=== PATIENT | male | born 1995 | race American Indian/Alaskan Native ===

== ENCOUNTER 2020-02-29 23:06 | Emergency (ER) | payer OTHER ==
[2020-02-29 23:44] VITALS: BP 113/80
--- NOTE | 2020-03-01 00:20 | XRay Report ---
CHEST 1 VIEW INDICATION / CLINICAL INFORMATION: Chest Pain. COMPARISON: None available. FINDINGS: SUPPORT DEVICES: None. HEART / MEDIASTINUM: No significant abnormality. LUNGS / PLEURA: No significant pulmonary or pleural abnormality. No pneumothorax. ADDITIONAL FINDINGS: No significant additional findings. IMPRESSION: No acute pulmonary or pleural abnormality. Signer Name: Andrés Cifuentes MD FACR Signed: 03/01/2020 12:15 AM Workstation Name: [id number]
[2020-03-01 05:02] LABS: Basophils % (Auto) 0.7 % (0.0-1.8); Eosinophils # (Auto) 0.1 K/mm3 (0.0-0.4); Eosinophils % (Auto) 1.2 % (0.0-4.3); Hematocrit 46.6 % (35.5-45.6); Hemoglobin 15.8 gm/dl (11.8-15.2); Lymphocytes # (Auto) 2.2 K/mm3 (1.2-5.4); Lymphocytes % (Auto) 38.6 % (13.4-35.0); Mean Corpuscular HGB Conc 34 % (32-34); Mean Corpuscular Volume 92 fl (84-94); Monocytes # (Auto) 0.5 K/mm3 (0.0-0.8); Monocytes % (Auto) 8.7 % (0.0-7.3); Platelet Count 285 K/mm3 (140-440); Red Blood Count 5.06 M/mm3 (3.65-5.03); Red Cell Distribution Width 14.4 % (13.2-15.2)
[2020-03-01 05:23] LABS: Alanine Aminotransferase 15 units/L (7-56); Albumin 4.4 g/dL (3.9-5); BUN/Creatinine Ratio 11; Blood Urea Nitrogen 11 mg/dL (9-20); Calcium 9.8 mg/dL (8.4-10.2); Hemolysis Index 11
--- NOTE | 2020-03-01 05:49 | Emergency Department Report ---
ED General Adult HPI - General Chief complaint: Chest Pain Stated complaint: CHEST PAIN Source: patient, EMS Mode of arrival: Ambulatory Limitations: No Limitations - History of Present Illness Initial comments: Patient is a 24-year-old -[place] male with no past medical history presents to the ED with complaint of acute onset persistent intermittent left upper and lower extremity numbness and tingling sensations with elevated heart rate and low back pain for the last 6 hours intermittently. Patient also states that he has been having the symptoms intermittently for over 1 year and that he was recently evaluated by his primary care physician who started him on me loxicam as needed for pain since he had flulike symptoms and neck pain. Patient denies dizziness, syncope, chest pain, shortness of breath, fever, chills, cough, abdominal pain, nausea and vomiting, diarrhea, sore throat, hematuria, traumatic injury, heavy lifting or testicular pain. MD Complaint: left arm and leg tingling; elevated heart rate; headache -: Sudden, hour(s) (6) Location: chest, back, upper extremity (left upper ), lower extremity (left) Radiation: extremity (left upper and lower ), distal Severity scale (0 -10): 1 Quality: aching, dull Consistency: intermittent Improves with: none Worsens with: none Associated Symptoms: denies other symptoms. denies: confusion, chest pain, cough, diaphoresis, fever/chills, headaches, loss of appetite, malaise, nausea/vomiting, rash, seizure, shortness of breath, syncope, weakness Treatments Prior to Arrival: none - Related Data Allergies Allergy/AdvReac Type Severity Reaction Status Date / Time No Known Allergies Allergy Unverified 02/29/20 23:40 ED Review of Systems ROS: Stated complaint: CHEST PAIN Other details as noted in HPI Constitutional: denies: chills, fever Eyes: denies: eye pain, eye discharge, vision change ENT: denies: ear pain, throat pain Respiratory: shortness of breath. denies: cough, wheezing Cardiovascular: palpitations, other (elevated heart rate). denies: chest pain Endocrine: no symptoms reported Gastrointestinal: denies: abdominal pain, nausea, vomiting, diarrhea Genitourinary: denies: urgency, dysuria Musculoskeletal: arthralgia (tingling sensations of left upper and lower extremities). denies: back pain, joint swelling Skin: denies: rash, lesions Neurological: denies: headache, weakness, paresthesias Psychiatric: anxiety. denies: depression, auditory hallucinations, visual hallucinations, suicidal thoughts Hematological/Lymphatic: denies: easy bleeding, easy bruising ED Past Medical Hx - Past Medical History Previous Medical History?: No - Surgical History Past Surgical History?: No - Social History Smoking Status: Never Smoker Substance Use Type: Alcohol ED Physical Exam - General Limitations: No Limitations General appearance: alert, in no apparent distress - Head Head exam: Present: atraumatic, normocephalic, normal inspection - Eye Eye exam: Present: normal appearance, PERRL, EOMI Pupils: Present: normal accommodation - ENT ENT exam: Present: normal exam, normal orophraynx, mucous membranes moist, TM's normal bilaterally, normal external ear exam - Neck Neck exam: Present: normal inspection, full ROM - Respiratory Respiratory exam: Present: normal lung sounds bilaterally. Absent: respiratory distress, wheezes, rales, rhonchi, chest wall tenderness, accessory muscle use, decreased breath sounds - Cardiovascular Cardiovascular Exam: Present: regular rate, normal rhythm, normal heart sounds. Absent: systolic murmur, diastolic murmur, rubs, gallop - GI/Abdominal GI/Abdominal exam: Present: soft, normal bowel sounds. Absent: tenderness, guarding, hyperactive bowel sounds, hypoactive bowel sounds - Extremities Exam Extremities exam: Present: normal inspection, full ROM, normal capillary refill - Back Exam Back exam: Present: normal inspection, full ROM. Absent: tenderness, CVA tenderness (R), CVA tenderness (L), muscle spasm, vertebral tenderness - Neurological Exam Neurological exam: Present: alert, oriented X3, CN II-XII intact, normal gait, reflexes normal - Psychiatric Psychiatric exam: Present: normal affect, normal mood, anxious. Absent: manic, homicidal ideation, suicidal ideation - Skin Skin exam: Present: warm, dry, intact, normal color. Absent: rash ED Course Vital Signs 02/29/20 23:40 Temperature 97.4 F L Pulse Rate 63 Respiratory 18 Rate Blood Pressure 113/80 O2 Sat by Pulse 100 Oximetry ED Medical Decision Making - Lab Data Result diagrams: 03/01/20 04:24 03/01/20 04:24 - Radiology Data Radiology results: report reviewed, image reviewed Findings [facility] [address] [place] [address] XRay Report Signed Patient: SARA MOREIRA MR#: [id number] : 1995 Acct:[id number] Age/Sex: 24 / M ADM Date: 02/29/20 Loc: ED Attending Dr: Ordering Physician: JORGE YOUNGER MD Date of Service: 02/29/20 Procedure(s): XR chest 1V ap Accession Number(s): [id number] cc: JORGE YOUNGER MD Fluoro Time In Minutes: CHEST 1 VIEW INDICATION / CLINICAL INFORMATION: Chest Pain. COMPARISON: None available. FINDINGS: SUPPORT DEVICES: None. HEART / MEDIASTINUM: No significant abnormality. LUNGS / PLEURA: No significant pulmonary or pleural abnormality. No pneumothorax. ADDITIONAL FINDINGS: No significant additional findings. IMPRESSION: No acute pulmonary or pleural abnormality. Signer Name: Andrés Cifuentes MD FACR Signed: 03/01/2020 12:15 AM Workstation Name: [id number] Transcribed By: MS Dictated By: Andrés Cifuentes MD Electronically Authenticated By: Andrés Cifuentes MD Signed Date/Time: 03/01/2014 DD/ TD/TT: - Medical Decision Making This is a 24-year-old -[place] male with no past medical history presents to the ED with complaint of acute onset persistent intermittent left upper and lower extremity numbness and tingling sensations with elevated heart rate and low back pain for the last 6 hours intermittently. Patient also states that he has been having the symptoms intermittently for over 1 year and that he was recently evaluated by his primary care physician who started him on meloxicam as needed for pain since he had flulike symptoms and neck pain. In the ED, patient is alert and oriented x3 and is not in distress but anxious. Patient is hemodynamically stable with normal vital signs. Lab test results were reviewed and are all nonactionable. Chest x-ray shows no acute cardiopulmonary abnormalities or pneumonitis. Patient symptoms are likely due to muscle strain or muscle spasm worsened by anxiety. Patient was advised to follow-up with his primary care physician in 5 to 7 days for reevaluation or return to the ED immediately if symptoms get worse. - Differential Diagnosis anxiety; panic attack; muscle strain; muscle spasm Critical care attestation.: If time is entered above; I have spent that time in minutes in the direct care of this critically ill patient, excluding procedure time. ED Disposition Clinical Impression: Spasm of muscle of lower back, Anxiety as acute reaction to exceptional stress Muscle strain of upper extremity Qualifiers: Encounter type: initial encounter Laterality: left Qualified Code(s): S46.912A - Strain of unspecified muscle, fascia and tendon at shoulder and upper arm l evel, left arm, initial encounter Disposition: TO HOME OR SELFCARE Is pt being admited?: No Does the pt Need Aspirin: No Condition: Stable Instructions: Muscle Strain (ED), Generalized Anxiety Disorder (ED), Muscle Spasm (ED) Additional Instructions: All lab test results are unremarkable and chest x-ray also shows no acute cardiopulmonary abnormalities or pneumonitis. Her symptoms are likely due to muscle spasm or muscle strain worsened by anxiety. Therefore follow-up with your primary care physician in 5 to 7 days for reevaluation or return to the ED immediately if symptoms get worse. Referrals: [facility] [Provider Group] - 3-5 Days Time of Disposition: 05:50 Print Language: CITIZEN OF [place]
== END 2020-03-01 05:55 | disposition home or self-care (01) ==
LOC: ED 23:06
DX: S46.912A Strain of unspecified muscle, fascia and tendon at shoulder and upper arm level, left arm, initial encounter (principal); M62.830 Muscle spasm of back; F41.1 Generalized anxiety disorder; F43.0 Acute stress reaction; X58.XXXA Exposure to other specified factors, initial encounter; Y93.89 Activity, other specified; Y92.89 Other specified places as the place of occurrence of the external cause; Y99.8 Other external cause status
CPT/HCPCS: 36415; 71045; 80053; 85025; 93005